=== PATIENT | female | born 1950 | race Caucasian/White ===

== ENCOUNTER 2022-02-15 13:05 | Inpatient (IN) | payer MEDICARE, OTHER ==
[2022-02-15] MEDS ORDERED: Bisacodyl 10 MG SUPP PR PRN (13:54)
[2022-02-15] MEDS ORDERED: Communication Order-Pharmacy FS SCH (13:54)
[2022-02-15] MEDS ORDERED: Ondansetron ODT 4 MG TAB PO PRN (13:54)
[2022-02-15] MEDS ORDERED: hydrALAZINE 20 MG/ML VIAL SLOW IVP PRN (13:54)
[2022-02-15] MEDS ORDERED: Labetalol HCl 100 MG/20 ML VIAL SLOW IVP PRN (13:54)
[2022-02-15] MEDS ORDERED: Calcium Carbonate 500 MG ChewTAB PO PRN (13:54)
[2022-02-15] MEDS ORDERED: Ondansetron PF 4 MG/2 ML Vial IVP PRN (13:54)
[2022-02-15] MEDS ORDERED: Mag-Al 1200 mg/1200 mg/30 ML UDCUP PO PRN (13:54)
[2022-02-15] MEDS ORDERED: Electrolyte Replacement Protocol 1 EACH FS SCH (14:00)
[2022-02-15] MEDS: Sodium Chloride 0.9% 1,000 ML IV SCH (15:17)
[2022-02-15] MEDS: niCARdipine 25 MG in Sodium Chloride 0.9% 250 ML 250 ML IVPB PRN ×2 (15:17→19:58)
[2022-02-15] MEDS: Famotidine/PF 20 mg/2ml Vial SLOW IVP SCH (20:02)
[2022-02-15] MEDS: Docusate 100 MG CAP PO SCH (20:02)
[2022-02-15] MEDS: Atorvastatin Calcium 40 MG TAB PO SCH (20:02)
[2022-02-15] MEDS: Famotidine 20 MG TAB PO SCH (20:02)
[2022-02-15] MEDS: cefTRIAXone\\ROCEPHIN 1 GM in Sodium Chloride 0.9% 100 ML IVPB SCH (21:03)
[2022-02-16] MEDS: Acetaminophen 325 MG TAB PO PRN (01:14)
[2022-02-16] MEDS ORDERED: Furosemide 40 MG/4 ML VIAL ONE (03:33)
[2022-02-16] MEDS: Sodium Chloride 0.9% 1,000 ML IV SCH (04:47)
[2022-02-16 08:04] LABS: SARS-CoV-2 NAA Rapid Test Not Detected (NotDetected)
[2022-02-16] MEDS ORDERED: Levothyroxine Sodium 75 MCG TAB PO SCH (08:45)
[2022-02-16] MEDS: Docusate 100 MG CAP PO SCH ×2 (08:59→20:37)
[2022-02-16] MEDS: Aspirin 325 mg Enteric Coated Tablet PO SCH (11:46)
[2022-02-16] MEDS ORDERED: Enoxaparin Sodium 40 MG/0.4 ML SYRINGE SC SCH (12:00)
[2022-02-16 12:30] LABS: #Basophils 0.1 thou/uL (0.0-0.2); #Eosinphils 0.1 thou/uL (0.0-0.7); #Lymphocytes 1.8 thou/uL (1.20-3.40); #Monocytes 0.5 thou/uL (0.11-0.59); #Neutrophils 5.9 thou/uL (1.40-6.50); %Basophils 0.7 % (0.0-1.0); %Eosinophils 1.2 % (0.0-10.0); %Lymphocytes 21.6 % (21.0-51.0); %Monocytes 6.4 % (0.0-10.0); %Neutrophils 70.1 % (42.0-75.0); Hemoglobin 14.8 g/dL (12.0-16.0); Mean Corpuscular HGB CONC 33.6 g/dL (32.0-36.0); Platelet Count 246 thou/uL (130-400); RBC Distribution Width 11.4 % (11.5-14.5); Red Blood Cell (RBC) Count 4.22 mill/uL (4.20-5.40); White Blood Cell (WBC) Count 8.4 thou/uL (4.8-10.8)
[2022-02-16 12:48] LABS: ALT (SGPT) 16 U/L (8-55); AST (SGOT) 23 U/L (5-34); Albumin 3.8 g/dL (3.4-4.8); Alkaline Phosphatase 100 U/L (40-110); Anion Gap 14 mmol/L (10-20); BUN (Urea Nitrogen) 8 mg/dL (9.8-20.1); Bilirubin, Total 0.6 mg/dL (0.2-1.2); Calc. Creatinine Clearance 64 mL/min (70-130); Calcium 8.9 mg/dL (7.8-10.44); Carbon Dioxide 25 mmol/L (23-31); Cardiac Risk 7.1 (Less than 4.5); Chloride 102 mmol/L (98-107); Cholesterol 250 mg/dl (< 200 Desired); Globulin 2.9 g/dL (2.4-3.5); Glucose 97 mg/dL (80-115); HDL Cholesterol 35 mg/dL (>60 Neg Risk); LDL Cholesterol, Calculated 169 mg/dL; Magnesium 2.2 mg/dL (1.6-2.6); Potassium 4.3 mmol/L (3.5-5.1); Protein, Total 6.7 g/dL (5.8-8.1); Sodium 137 mmol/L (136-145); Triglycerides 232 mg/dL (Less than 150)
[2022-02-16 12:52] LABS: Troponin I Less than 0.010 ng/mL (< 0.028)
[2022-02-16] MEDS: Aspirin 300 MG Suppository PR SCH (14:37)
[2022-02-16] MEDS: Atorvastatin Calcium 40 MG TAB PO SCH (20:37)
[2022-02-16] MEDS: Enoxaparin Sodium 40 MG/0.4 ML SYRINGE SC SCH (20:37)
[2022-02-16] MEDS: Famotidine 20 MG TAB PO SCH (20:37)
[2022-02-16] MEDS: Famotidine/PF 20 mg/2ml Vial SLOW IVP SCH (20:38)
[2022-02-16] MEDS: cefTRIAXone\\ROCEPHIN 1 GM in Sodium Chloride 0.9% 100 ML IVPB SCH (20:38)
[2022-02-17 05:31] LABS: Hemoglobin A1c 5.9 % (4.0-6.0)
[2022-02-17 05:43] LABS: Anion Gap 15 mmol/L (10-20); BUN (Urea Nitrogen) 12 mg/dL (9.8-20.1); Calc. Creatinine Clearance 62 mL/min (70-130); Calcium 8.6 mg/dL (7.8-10.44); Carbon Dioxide 21 mmol/L (23-31); Chloride 100 mmol/L (98-107); Glucose 79 mg/dL (80-115); Potassium 3.9 mmol/L (3.5-5.1); Sodium 132 mmol/L (136-145)
[2022-02-17] MEDS: Levothyroxine Sodium 75 MCG TAB PO SCH (06:18)
[2022-02-17] MEDS: Docusate 100 MG CAP PO SCH ×2 (09:11→20:37)
[2022-02-17] MEDS: Aspirin 325 mg Enteric Coated Tablet PO SCH (09:11)
[2022-02-17] MEDS: Aspirin 300 MG Suppository PR SCH (12:43)
[2022-02-17] MEDS: Colchicine 0.6 MG TAB PO SCH (20:37)
[2022-02-17] MEDS: Enoxaparin Sodium 40 MG/0.4 ML SYRINGE SC SCH (20:37)
[2022-02-17] MEDS: Famotidine 20 MG TAB PO SCH (20:37)
[2022-02-17] MEDS: Atorvastatin Calcium 40 MG TAB PO SCH (20:37)
[2022-02-18 05:19] LABS: Anion Gap 16 mmol/L (10-20); BUN (Urea Nitrogen) 15 mg/dL (9.8-20.1); Calc. Creatinine Clearance 56 mL/min (70-130); Calcium 9.2 mg/dL (7.8-10.44); Carbon Dioxide 23 mmol/L (23-31); Chloride 101 mmol/L (98-107); Glucose 102 mg/dL (80-115); Potassium 3.8 mmol/L (3.5-5.1); Sodium 136 mmol/L (136-145); Uric Acid 8.9 mg/dL (2.6-6.0)
[2022-02-18] MEDS: Levothyroxine Sodium 75 MCG TAB PO SCH (05:25)
[2022-02-18] MEDS: Aspirin 81 mg Enteric Coated Tablet PO SCH (10:14)
[2022-02-18] MEDS: Docusate 100 MG CAP PO SCH ×2 (10:14→20:17)
[2022-02-18] MEDS: Clopidogrel Bisulfate 75 MG TAB PO SCH (10:15)
[2022-02-18] MEDS: Acetaminophen 325 MG TAB PO PRN (19:08)
[2022-02-18] MEDS: Atorvastatin Calcium 40 MG TAB PO SCH (20:16)
[2022-02-18] MEDS: Enoxaparin Sodium 40 MG/0.4 ML SYRINGE SC SCH ×2 (20:16→20:19)
[2022-02-18] MEDS: Colchicine 0.6 MG TAB PO SCH (20:16)
[2022-02-18] MEDS: Famotidine 20 MG TAB PO SCH (20:16)
[2022-02-19] MEDS: Levothyroxine Sodium 75 MCG TAB PO SCH (05:18)
[2022-02-19] MEDS: Clopidogrel Bisulfate 75 MG TAB PO SCH (09:43)
[2022-02-19] MEDS: Aspirin 81 mg Enteric Coated Tablet PO SCH (09:43)
[2022-02-19] MEDS: Docusate 100 MG CAP PO SCH ×2 (09:44→20:23)
[2022-02-19] MEDS: Famotidine 20 MG TAB PO SCH (20:22)
[2022-02-19] MEDS: Atorvastatin Calcium 40 MG TAB PO SCH (20:22)
[2022-02-19] MEDS: Colchicine 0.6 MG TAB PO SCH (20:22)
[2022-02-19] MEDS: Enoxaparin Sodium 40 MG/0.4 ML SYRINGE SC SCH (20:23)
[2022-02-20] MEDS: Levothyroxine Sodium 75 MCG TAB PO SCH (05:04)
[2022-02-20] MEDS: Docusate 100 MG CAP PO SCH ×3 (08:05→21:45)
[2022-02-20] MEDS: Clopidogrel Bisulfate 75 MG TAB PO SCH (08:08)
[2022-02-20] MEDS: Aspirin 81 mg Enteric Coated Tablet PO SCH (08:08)
[2022-02-20] MEDS: Colchicine 0.6 MG TAB PO SCH (21:39)
[2022-02-20] MEDS: Enoxaparin Sodium 40 MG/0.4 ML SYRINGE SC SCH ×2 (21:39→21:45)
[2022-02-20] MEDS: Atorvastatin Calcium 40 MG TAB PO SCH (21:39)
[2022-02-20] MEDS: Famotidine 20 MG TAB PO SCH (21:39)
[2022-02-21] MEDS: Acetaminophen 325 MG TAB PO PRN (04:14)
[2022-02-21 05:28] VITALS: BMI 47.0
[2022-02-21] MEDS: Levothyroxine Sodium 75 MCG TAB PO SCH (06:13)
[2022-02-21] MEDS: Docusate 100 MG CAP PO SCH (09:16)
[2022-02-21] MEDS: Aspirin 81 mg Enteric Coated Tablet PO SCH (09:16)
[2022-02-21] MEDS: Clopidogrel Bisulfate 75 MG TAB PO SCH (09:16)
[2022-02-21 11:52] VITALS: BP 154/79; TEMP 97.8
== END 2022-02-21 13:11 | DRG 64 ==
LOC: CCU 13:51 → NEURO 02-16 12:44
PROVIDERS: ADMIT Internal Medicine; ATTEND Family Medicine
DX: I63.411 Cerebral infarction due to embolism of right middle cerebral artery (principal); G93.6 Cerebral edema; G81.94 Hemiplegia, unspecified affecting left nondominant side; Z68.42 Body mass index [BMI] 45.0-49.9, adult; I65.21 Occlusion and stenosis of right carotid artery; I25.10 Atherosclerotic heart disease of native coronary artery without angina pectoris; I25.2 Old myocardial infarction; Z95.1 Presence of aortocoronary bypass graft; E78.5 Hyperlipidemia, unspecified; R29.810 Facial weakness; E03.9 Hypothyroidism, unspecified; M10.9 Gout, unspecified; Z20.822 Contact with and (suspected) exposure to COVID-19; E66.9 Obesity, unspecified; R47.1 Dysarthria and anarthria; N18.30 Chronic kidney disease, stage 3 unspecified; I12.9 Hypertensive chronic kidney disease with stage 1 through stage 4 chronic kidney disease, or unspecified chronic kidney disease; F17.210 Nicotine dependence, cigarettes, uncomplicated; R47.01 Aphasia; R29.706 NIHSS score 6; Z92.82 Status post administration of tPA (rtPA) in a different facility within the last 24 hours prior to admission to current facility; Z85.828 Personal history of other malignant neoplasm of skin; Z71.6 Tobacco abuse counseling
CPT/HCPCS: 36415; 70450; 70551; 80048; 80053; 80061; 82607; 82746; 83036; 83735; 84443; 84484; 84550; 85025; 93306; 95712; 95819; 95957; J0696; J1650; J3490; J7050; U0002

== ENCOUNTER 2022-03-05 16:52 | Emergency (ER) | payer OTHER | END 2022-03-05 19:15 | disposition home or self-care (01) | LOC: ERS 16:52 | DX: M23.51 Chronic instability of knee, right knee (principal); I10 Essential (primary) hypertension; E03.9 Hypothyroidism, unspecified; E78.5 Hyperlipidemia, unspecified; I25.2 Old myocardial infarction; Z87.891 Personal history of nicotine dependence ==